=== PATIENT | female | born 1950 | race Caucasian/White ===

== ENCOUNTER 2017-04-10 10:49 | Emergency (ER) | payer MEDICARE, BC ==
[2017-04-10 11:29] VITALS: BP 119/62
--- NOTE | 2017-04-10 12:48 | EDM.PDOC ---
ED HPI GENERAL MEDICAL PROBLEM - General Chief Complaint: Genitourinary Problem Stated Complaint: POSSIBLE UTI Time Seen by Provider: 04/10/17 12:20 Source of Information: Reports: Patient, Family, Old Records History Limitations: Reports: No Limitations - History of Present Illness INITIAL COMMENTS - FREE TEXT/NARRATIVE: 66 yo female with MS is being tx'd with cefdinir for the past few days for a UTI. Was getting better in that her speech and arm strength were normalizing, but this morning seemed to be worse again so brought her in. Is actually quite a bit better now in the ER. Has several days of the cefdinir still left. Cx suggests efficacy. Onset: Today Onset Date: 04/10/17 Duration: Hour(s): Location: Reports: Upper Extremity, Left, Upper Extremity, Right Quality: Reports: Other (WEAKNESS) Severity: Mild Improves with: Reports: Other (? time) Worsens with: Reports: Other (infections) Context: Reports: Other (current UTI) Associated Symptoms: Reports: Weakness (arms bilat). Denies: Fever/Chills Treatments SUPERVISOR PLASMA: Reports: Other (see below) (cefdinir) Other Treatments SUPERVISOR PLASMA: Antibiotic for UTI - Related Data Allergies Allergy/AdvReac Type Severity Reaction Status Date / Time sulfamethoxazole Allergy Cannot Verified 04/10/17 12:26 [From Bactrim] Remember trimethoprim [From Bactrim] Allergy Cannot Verified 04/10/17 12:26 Remember Home Meds: Home Meds 0.9 % Sodium Chloride [Normal Saline Flush] 10 ml FLUSH DAILY 08/10/14 [History] Baclofen 10 - 20 mg PO TID 08/10/14 [History] Multivitamin [Daily Multiple Vitamin] 1 tab PO DAILY 08/10/14 [History] Cholecalciferol (Vitamin D3) [Vitamin D3] 2,500 units PO DAILY 01/03/15 [History ] Cefdinir [Cefdinir] 300 mg PO BID 04/10/17 [History] Past Medical History Genitourinary History: Reports: Other (See Below) Other Genitourinary History: has a catheter in place Has MS Other Musculoskeletal History: femur fracture in 2014 - Infectious Disease History Infectious Disease History: Reports: Chicken Pox Social & Family History - Tobacco Use Smoking Status *Q: Never Smoker Second Hand Smoke Exposure: No - Caffeine Use Caffeine Use: Reports: Coffee - Alcohol Use Days Per Week of Alcohol Use: 1 Number of Drinks Per Day: 1 Total Drinks Per Week: 1 - Recreational Drug Use Recreational Drug Use: No - Living Situation & Occupation Living situation: Reports: , with Spouse Occupation: Disabled ED ROS GENERAL - Review of Systems Review Of Systems: See Below Constitutional: Reports: Weakness (arms/some speech issues) HEENT: Reports: No Symptoms Respiratory: Reports: No Symptoms Cardiovascular: Reports: No Symptoms GI/Abdominal: Reports: No Symptoms : Reports: No Symptoms Musculoskeletal: Reports: No Symptoms Skin: Reports: No Symptoms Neurological: Reports: No Symptoms Psychiatric: Reports: No Symptoms ED EXAM, RENAL/ - Physical Exam Exam: See Below Exam Limited By: No Limitations General Appearance: Alert, WD/WN, No Apparent Distress, Obese Eye Exam: Bilateral Eye: EOMI, Normal Inspection, PERRL Ears: Normal External Exam, Normal Canal, Hearing Grossly Normal, Normal TMs Nose: Normal Inspection, Normal Mucosa, No Blood Throat/Mouth: Normal Inspection, Normal Lips, Normal Teeth, Normal Oropharynx, Normal Voice, No Airway Compromise Head: Atraumatic, Normocephalic Neck: Normal Inspection, Supple, Non-Tender Respiratory/Chest: No Respiratory Distress, Lungs Clear, Normal Breath Sounds, No Accessory Muscle Use Cardiovascular: Regular Rate, Rhythm, No Edema GI/Abdominal: Normal Bowel Sounds, Soft, Non-Tender Back Exam: Normal Inspection. No: CVA Tenderness (R), CVA Tenderness (L) Extremities: Normal Inspection, Normal Range of Motion, Non-Tender Neurological: Alert, Oriented, CN II-XII Intact, Normal Cognition, No Motor/ Sensory Deficits Psychiatric: Normal Affect, Normal Mood Skin Exam: Warm, Dry, Intact, Normal Color, No Rash Lymphatic: No Adenopathy Course - Vital Signs Last Recorded V/S: Last Vital Signs Temp 36.9 C 04/10/17 12:25 Pulse 68 04/10/17 12:25 Resp 18 04/10/17 12:25 BP 119/62 04/10/17 12:25 Pulse Ox 93 L 04/10/17 12:25 - Orders/Labs/Meds Orders: Active Orders 24 hr Category Date Time Status CULTURE URINE [RM] Stat Lab 04/10/17 12:34 Received Labs: Laboratory Tests 04/10/17 Range/Units 11:53 Urine Color Yellow Urine Appearance Cloudy Urine pH 7.0 (4.5-8.0) Ur Specific [place] 1.010 (1.008-1.030) Urine Protein Trace (NEGATIVE) mg/dL Urine Glucose (UA) Normal (NEGATIVE) mg/dL Urine Ketones 15 H (NEGATIVE) mg/dL Urine Occult Blood Large (NEGATIVE) Urine Nitrite Negative (NEGATIVE) Urine Bilirubin Negative (NEGATIVE) Urine Urobilinogen Normal (NORMAL) mg/dL Ur Leukocyte Esterase Large (NEGATIVE) Urine RBC 0-5 (0-5) Urine WBC 10-20 H (0-5) Ur Epithelial Cells Few Amorphous Sediment Few Urine Bacteria Few Urine Mucus Rare Departure - Departure Time of Disposition: 12:55 Disposition: Home, Self-Care 01 Condition: Good Clinical Impression: UTI, Urinary tract infectious disease - Discharge Information Referrals: Phu Marie NP [Primary Care Provider] - Forms: ED Department Discharge - My Orders Last 24 Hours: My Active Orders 04/10/17 12:34 CULTURE URINE [RM] Stat - Assessment/Plan Last 24 Hours: My Active Orders 04/10/17 12:34 CULTURE URINE [RM] Stat
== END 2017-04-10 13:05 | disposition home or self-care (01) ==
LOC: JP.ED 10:49
DX: N39.0 Urinary tract infection, site not specified (principal); Z79.899 Other long term (current) drug therapy; Z88.2 Allergy status to sulfonamides; Z88.1 Allergy status to other antibiotic agents
CPT/HCPCS: 81001; 87086; 87088; 87186; 99283; 99284

== ENCOUNTER 2017-10-16 20:13 | Emergency (ER) | payer MEDICARE, BC ==
[2017-10-16] MEDS ORDERED: cefTRIAXone 1 GM, Lidocaine 1% 2.1 ML IM ONE ×2 (21:53)
--- NOTE | 2017-10-16 22:02 | EDM.PDOC ---
ED HPI GENERAL MEDICAL PROBLEM - General Chief Complaint: Genitourinary Problem Stated Complaint: UTI? Time Seen by Provider: 10/16/17 21:00 Source of Information: Reports: Patient, Family History Limitations: Reports: No Limitations - History of Present Illness INITIAL COMMENTS - FREE TEXT/NARRATIVE: Nancy presents today with complaints of bilateral flank pain, intermittent fever and chills, weakness, cloud and dark urine for 2 days. 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 Pain Score (Numeric/FACES): 4 - Related Data Allergies Allergy/AdvReac Type Severity Reaction Status Date / Time sulfamethoxazole Allergy Cannot Verified 04/10/17 12:26 [From Bactrim] Remember trimethoprim [From Bactrim] Allergy Cannot Verified 04/10/17 12:26 Remember Home Meds: Home Meds RX: 0.9 % Sodium Chloride [Normal Saline Flush] 10 ml FLUSH DAILY 08/10/14 [ History] RX: Baclofen 10 - 20 mg PO TID 08/10/14 [History] RX: Multivitamin [Daily Multiple Vitamin] 1 tab PO DAILY 08/10/14 [History] RX: Cholecalciferol (Vitamin D3) [Vitamin D3] 2,500 units PO DAILY 01/03/15 [ History] Cefdinir 300 mg PO BID 04/10/17 [History] Past Medical History Genitourinary History: Reports: UTI, Recurrent, Other (See Below) Other Genitourinary History: has a catheter in place 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 tibia and fibula fracture Neurological History: Reports: Other (See Below) Other Neuro History: MS Endocrine/Metabolic History: Reports: Obesity/BMI 30+ Oncologic (Cancer) History: Reports: Other (See Below) Other Oncologic History: Schwanoma tumors - Infectious Disease History Infectious Disease History: Reports: Chicken Pox - Past Surgical History GI Surgical History: Reports: Colonoscopy Neurological Surgical History: Reports: Thoracic Spine Musculoskeletal Surgical History: Reports: Other (See Below) Other Musculoskeletal Surgeries/Procedures:: Left femur surgically repaired, lino placed Social & Family History - Tobacco Use Smoking Status *Q: Never Smoker - Caffeine Use Caffeine Use: Reports: Coffee - Recreational Drug Use Recreational Drug Use: No - Living Situation & Occupation Living situation: Reports: , with Spouse Occupation: Disabled ED ROS GENERAL - Review of Systems Review Of Systems: See Below Constitutional: Reports: Fever, Chills, Weakness. Denies: Malaise, Fatigue, Night Sweats, Diaphoresis, Decreased Appetite HEENT: Reports: No Symptoms Respiratory: Denies: Shortness of Breath, Wheezing, Cough, Sputum Cardiovascular: Denies: Chest Pain, Dyspnea on Exertion, Edema, Lightheadedness , Palpitations, Syncope Endocrine: Reports: No Symptoms GI/Abdominal: Denies: Abdominal Pain, Bloody Stool, Constipation, Diarrhea, Decreased Appetite, Hematochezia, Nausea, Vomiting : Reports: Flank Pain, Other (cloudy urine, patient has indwelling catheter due to significant MS. ). Denies: Dysuria Musculoskeletal: Reports: No Symptoms Skin: Denies: Cyanosis, Pallor, Diaphoresis, Bruising, Pruritis, Rash, Erythema Neurological: Reports: Weakness. Denies: Confusion, Dizziness, Headache, Numbness, Tingling Psychiatric: Reports: No Symptoms Hematologic/Lymphatic: Reports: No Symptoms Immunologic: Reports: No Symptoms ED EXAM, GI/ABD - Physical Exam Exam: See Below Text/Narrative:: Nancy is an alert and oriented 67 year old female with complaints of bilateral flank pain, intermittent fever, chills for two days. She has a history of MS and is wheelchair bound. General Appearance: Alert, WD/WN, No Apparent Distress Eyes: Bilateral: Normal Appearance, EOMI Ears: Normal External Exam, Normal Canal, Hearing Grossly Normal, Normal TMs Nose: Normal Inspection, Normal Mucosa, No Blood Throat/Mouth: Normal Inspection, Normal Lips, Normal Gums, Normal Oropharynx, Normal Voice, No Airway Compromise Head: Atraumatic, Normocephalic Neck: Normal Inspection, Supple, Non-Tender, Full Range of Motion Respiratory/Chest: No Respiratory Distress, Lungs Clear, Normal Breath Sounds, No Accessory Muscle Use, Chest Non-Tender Cardiovascular: Normal Peripheral Pulses, Regular Rate, Rhythm, No Edema, No Murmur, No Rub GI/Abdominal Exam: Normal Bowel Sounds, Soft, Non-Tender, No Organomegaly, No Distention, No Mass Back Exam: Normal Inspection, Full Range of Motion. No: CVA Tenderness (R), CVA Tenderness (L) Extremities: Normal Inspection, Normal Range of Motion, Non-Tender, No Pedal Edema, Normal Capillary Refill Neurological: Alert, Oriented, Normal Cognition, Other (Wheelchair bound, decreased reflexes due to MS.) Psychiatric: Normal Affect, Normal Mood Skin Exam: Warm, Dry, Intact, Normal Color, No Rash Lymphatic: No Adenopathy Course - Vital Signs Last Recorded V/S: Last Vital Signs Temp 38.4 C H 10/16/17 23:01 Pulse 96 10/16/17 23:01 Resp 21 H 10/16/17 23:01 BP 110/44 L 10/16/17 23:01 Pulse Ox 94 L 10/16/17 23:01 - Orders/Labs/Meds Orders: Active Orders 24 hr Category Date Time Status Barboza Catheter Insertion [Insert Urinary Catheter] [OM. Care 10/16/17 23:45 Ordered PC] Q24H Urinary Catheter Assessment [RC] ASDIRECTED Care 10/16/17 23:38 Active Chest 1V Frontal [CR] Stat Exams 10/16/17 23:28 Ordered CULTURE BLOOD [BC] Stat Lab 10/16/17 22:10 Received CULTURE URINE [RM] Stat Lab 10/16/17 21:45 Received UA W/MICROSCOPIC [URIN] Stat Lab 10/16/17 21:24 Ordered Sodium Chloride 0.9% [Normal Saline] 1,000 ml Med 10/16/17 22:30 Active IV ASDIRECTED Medication Orders Sodium Chloride (Normal Saline) 1,000 mls @ 500 mls/hr IV ASDIRECTED LAZARO Last Admin: 10/16/17 22:44 Dose: 500 mls/hr Labs: Laboratory Tests 10/16/17 10/16/17 10/16/17 Range/Units 21:24 22:09 22:10 WBC 14.3 H (4.5-11.0) K/uL RBC 5.13 (3.30-5.50) M/uL Hgb 15.5 H D (12.0-15.0) g/dL Hct 46.3 (36.0-48.0) % MCV 90 (80-98) fL MCH 30 (27-31) pg MCHC 34 (32-36) % Plt Count 352 (150-400) K/uL Neut % (Auto) 82 H (36-66) % Lymph % (Auto) 11 L (24-44) % Hind[place] % (Auto) 7 H (2-6) % Eos % (Auto) 0 L (2-4) % Baso % (Auto) 0 (0-1) % Sodium 135 L (140-148) mmol/L Potassium 3.7 (3.6-5.2) mmol/L Chloride 100 (100-108) mmol/L Carbon Dioxide 24 (21-32) mmol/L Anion Gap 14.7 H (5.0-14.0) mmol/L BUN 13 (7-18) mg/dL Creatinine 0.6 (0.6-1.0) mg/dL Est Cr Clr Drug Dosing 86.34 mL/min Estimated GFR (MDRD) > 60 (>60) Glucose 118 H (74-106) mg/dL Lactic Acid (0.4-2.0) mmol/L Calcium 8.8 (8.5-10.1) mg/dL Total Bilirubin 0.8 (0.2-1.0) mg/dL AST 63 H (15-37) U/L ALT 104 H (12-78) U/L Alkaline Phosphatase 94 (46-116) U/L C-Reactive Protein 10.47 H (0.0-0.3) mg/dL Total Protein 7.7 (6.4-8.2) g/dL Albumin 3.5 (3.4-5.0) g/dL Globulin 4.2 H (2.3-3.5) g/dL Albumin/Globulin Ratio 0.8 L (1.2-2.2) Urine Color Yellow Urine Appearance Cloudy Urine pH 6.0 (4.5-8.0) Ur Specific [place] 1.015 (1.008-1.030) Urine Protein 30 H (NEGATIVE) mg/dL Urine Glucose (UA) Normal (NEGATIVE) mg/dL Urine Ketones 15 H (NEGATIVE) mg/dL Urine Occult Blood Large (NEGATIVE) Urine Nitrite Positive H (NEGATIVE) Urine Bilirubin Small (NEGATIVE) Urine Urobilinogen 4 (NORMAL) mg/dL Ur Leukocyte Esterase Large (NEGATIVE) Urine RBC Packed H (0-5) Urine WBC Packed H (0-5) Ur Epithelial Cells Few Amorphous Sediment Not seen Urine Bacteria Many Urine Mucus Not seen 10/16/17 Range/Units 22:10 WBC (4.5-11.0) K/uL RBC (3.30-5.50) M/uL Hgb (12.0-15.0) g/dL Hct (36.0-48.0) % MCV (80-98) fL MCH (27-31) pg MCHC (32-36) % Plt Count (150-400) K/uL Neut % (Auto) (36-66) % Lymph % (Auto) (24-44) % [place] % (Auto) (2-6) % Eos % (Auto) (2-4) % Baso % (Auto) (0-1) % Sodium (140-148) mmol/L Potassium (3.6-5.2) mmol/L Chloride (100-108) mmol/L Carbon Dioxide (21-32) mmol/L Anion Gap (5.0-14.0) mmol/L BUN (7-18) mg/dL Creatinine (0.6-1.0) mg/dL Est Cr Clr Drug Dosing mL/min Estimated GFR (MDRD) (>60) Glucose (74-106) mg/dL Lactic Acid 1.6 (0.4-2.0) mmol/L Calcium (8.5-10.1) mg/dL Total Bilirubin (0.2-1.0) mg/dL AST (15-37) U/L ALT (12-78) U/L Alkaline Phosphatase (46-116) U/L C-Reactive Protein (0.0-0.3) mg/dL Total Protein (6.4-8.2) g/dL Albumin (3.4-5.0) g/dL Globulin (2.3-3.5) g/dL Albumin/Globulin Ratio (1.2-2.2) Urine Color Urine Appearance Urine pH (4.5-8.0) Ur Specific [place] (1.008-1.030) Urine Protein (NEGATIVE) mg/dL Urine Glucose (UA) (NEGATIVE) mg/dL Urine Ketones (NEGATIVE) mg/dL Urine Occult Blood (NEGATIVE) Urine Nitrite (NEGATIVE) Urine Bilirubin (NEGATIVE) Urine Urobilinogen (NORMAL) mg/dL Ur Leukocyte Esterase (NEGATIVE) Urine RBC (0-5) Urine WBC (0-5) Ur Epithelial Cells Amorphous Sediment Urine Bacteria Urine Mucus Patient lab work reviewed, noted WBC 14.3, Neut 82, Na 135, Lactic acid 1.6, CRP 10.46. Lab work reviewed with Dr. Cali, patient and her . they are in agreement with plan. We will provide IV fluid hydration, ceftriaxone 1 gram IV and ciprofloxacin 400mg IV, change indwelling barboza catheter and transfer to another facility due to no bed availability. Meds: Medications Generic Name Dose Route Start Last Admin Trade Name Freq PRN Reason Stop Dose Admin Sodium Chloride 1,000 mls @ 500 mls/hr 10/16/17 22:30 10/16/17 22:44 Normal Saline IV 500 mls/hr ASDIRECTED LAZARO Administration Discontinued Medications Generic Name Dose Route Start Last Admin Trade Name Freq PRN Reason Stop Dose Admin Acetaminophen 1,000 mg 10/16/17 22:10 10/16/17 22:43 Tylenol Extra Strength PO 10/16/17 22:11 1,000 mg ONETIME ONE Administration Ceftriaxone Sodium 1 gm/ 0 gm 10/16/17 21:53 10/16/17 22:56 Lidocaine HCl 2.1 ml IM 10/16/17 21:54 Not Given ONETIME ONE Ciprofloxacin/Dextrose 400 mg/ 200 mls @ 200 mls/hr 10/16/17 22:11 10/16/17 22:46 Premix IV 10/16/17 23:10 200 mls/hr ONETIME ONE Administration Ceftriaxone Sodium 1 gm/ 50 mls @ 100 mls/hr 10/16/17 22:13 10/16/17 22:55 Sodium Chloride IV 10/16/17 22:42 100 mls/hr ONETIME ONE Administration Ondansetron HCl 4 mg 10/16/17 22:09 10/16/17 22:43 Zofran Odt PO 10/16/17 22:10 4 mg ONETIME ONE Administration - Radiology Interpretation Free Text/Narrative:: Portable chest x-ray completed, wet read, no acute findings. Radiologist read pending. - Re-Assessments/Exams Free Text/Narrative Re-Assessment/Exam: 10/16/17 22:30 Upon discharge, patient became nauseated, diaphoretic with increase of fever to 102F. Additional lab work, IV fluids initiated. No hospital beds available here at [facility]. 10/16/17 23:11 Dr. Floyd contacted [facility] for concerns of acute UTI, Acute pyelonephritis, comorbidities. He agrees to accept patient. Patient will be transferred via EMS. Patient and her in agreement with plan. Departure - Departure Time of Disposition: 23:19 Disposition: DC/Tfer to [facility] Condition: Fair Clinical Impression: Acute lower urinary tract infection, Acute pyelonephritis - Discharge Information Referrals: Phu Marie, FORM CARPENTER [Primary Care Provider] - Forms: ED Department Discharge Additional Instructions: Patient evaluated, will be transferred to [facility] for acute urinary tract infection and acute pyelonephritis - My Orders Last 24 Hours: My Active Orders 10/16/17 21:24 UA W/MICROSCOPIC [URIN] Stat 10/16/17 21:45 CULTURE URINE [RM] Stat 10/16/17 22:10 CULTURE BLOOD [BC] Stat 10/16/17 22:30 Sodium Chloride 0.9% [Normal Saline] 1,000 ml IV ASDIRECTED 10/16/17 23:28 Chest 1V Frontal [CR] Stat 10/16/17 23:38 Urinary Catheter Assessment [RC] ASDIRECTED 10/16/17 23:45 Barboza Catheter Insertion [Insert Urinary Catheter] [OM.PC] Q24H - Assessment/Plan Last 24 Hours: My Active Orders 10/16/17 21:24 UA W/MICROSCOPIC [URIN] Stat 10/16/17 21:45 CULTURE URINE [RM] Stat 10/16/17 22:10 CULTURE BLOOD [BC] Stat 10/16/17 22:30 Sodium Chloride 0.9% [Normal Saline] 1,000 ml IV ASDIRECTED 10/16/17 23:28 Chest 1V Frontal [CR] Stat 10/16/17 23:38 Urinary Catheter Assessment [RC] ASDIRECTED 10/16/17 23:45 Barboza Catheter Insertion [Insert Urinary Catheter] [OM.PC] Q24H Assessment:: Acute urinary tract infection Acute pyelonephritis Plan: Patient evaluated and will be transferred to [facility].
[2017-10-16] MEDS ORDERED: Ondansetron 4 MG Tab.DIS PO ONE (22:09)
[2017-10-16] MEDS ORDERED: Acetaminophen 500 MG Tab PO ONE (22:10)
[2017-10-16] MEDS ORDERED: Ciprofloxacin in D5W 400 MG in Premix Bag 1 BAG IV ONE ×2 (22:11)
[2017-10-16] MEDS ORDERED: cefTRIAXone 1 GM in Sodium Chloride 0.9% 50 ML IV ONE (22:13)
[2017-10-16] MEDS ORDERED: Sodium Chloride 0.9% 1,000 ML IV SCH (22:30)
[2017-10-16 23:01] VITALS: BP 110/44
--- NOTE | 2017-10-19 09:05 | CR ---
Chest 1V Frontal FINDINGS: The heart and vascular structures are normal in appearance. No infiltrates or effusions are demonstrated. The skeletal structures are unremarkable. IMPRESSION: Negative exam.
== END 2017-10-17 00:25 | disposition critical access hospital (66) ==
LOC: JP.ED 20:13
DX: N39.0 Urinary tract infection, site not specified (principal); N10 Acute pyelonephritis; Z88.2 Allergy status to sulfonamides; Z88.1 Allergy status to other antibiotic agents; Z79.899 Other long term (current) drug therapy
CPT/HCPCS: 36415; 71045; 80053; 81001; 83605; 85025; 86140; 87040; 87086; 87088; 87186; 96361; 96365; 96375; 99285; A9270; J0696; J0744; J7040; J7050

== ENCOUNTER 2018-07-02 16:23 | Emergency (ER) | payer MEDICARE, BC ==
[2018-07-02 16:43] VITALS: BP 146/70
--- NOTE | 2018-07-02 17:51 | EDM.PDOC ---
ED HPI GENERAL MEDICAL PROBLEM - General Chief Complaint: Genitourinary Problem Stated Complaint: UTI Time Seen by Provider: 07/02/18 17:27 Source of Information: Reports: Patient (In this lady with the MS is some family member) History Limitations: Reports: No Limitations - History of Present Illness INITIAL COMMENTS - FREE TEXT/NARRATIVE: This lady has MS and an indwelling Phelps catheter. She has a history of recurrent bladder infections. Her Phelps catheter was changed approximately 8 days ago. Last night she thinks she had just a little bit of fever. There's been no vomiting. She does say she kind of has blocked body aches and minor back pain. She thinks she has a urinary tract infection as this is similar to her past presentations with UTIs. Generalized Pain Score (Numeric/FACES): 8 - Related Data Allergies Allergy/AdvReac Type Severity Reaction Status Date / Time sulfamethoxazole Allergy Cannot Verified 07/02/18 16:43 [From Bactrim] Remember trimethoprim [From Bactrim] Allergy Cannot Verified 07/02/18 16:43 Remember Home Meds: Home Meds Baclofen 10 mg PO BID 08/10/14 [History] Multivitamin [Daily Multiple Vitamin] 1 tab PO DAILY 08/10/14 [History] Cholecalciferol (Vitamin D3) [Vitamin D3] 2,500 units PO DAILY 01/03/15 [History ] Citric AC/Gluconolact/Mag Carb [Renacidin Irrigation Solution] 50 ml FLUSH ASDIRECTED 05/12/18 [History] Past Medical History Gastrointestinal History: Reports: Fecal Incontinence, Other (See Below) Genitourinary History: Reports: UTI, Recurrent, Other (See Below) Other Genitourinary History: has a catheter in place 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 tibia and fibula fracture Neurological History: Reports: Other (See Below) Other Neuro History: MS Endocrine/Metabolic History: Reports: Obesity/BMI 30+ Oncologic (Cancer) History: Reports: Other (See Below) Other Oncologic History: Schwanoma tumors - Infectious Disease History Infectious Disease History: Reports: Chicken Pox, Measles, Mumps - Past Surgical History Head Surgeries/Procedures: Reports: None GI Surgical History: Reports: Colonoscopy Female Surgical History: Reports: None Endocrine Surgical History: Reports: None Neurological Surgical History: Reports: Thoracic Spine Musculoskeletal Surgical History: Reports: Other (See Below) Other Musculoskeletal Surgeries/Procedures:: Left femur surgically repaired, lino placed Oncologic Surgical History: Reports: None Dermatological Surgical History: Reports: None Social & Family History - Tobacco Use Smoking Status *Q: Never Smoker Second Hand Smoke Exposure: No - Caffeine Use Caffeine Use: Reports: Coffee - Recreational Drug Use Recreational Drug Use: No - Living Situation & Occupation Living situation: Reports: , with Spouse Occupation: Disabled ED ROS GENERAL - Review of Systems Review Of Systems: ROS reveals no pertinent complaints other than HPI. ED EXAM, RENAL/ - Physical Exam Exam: See Below Exam Limited By: No Limitations General Appearance: Alert, No Apparent Distress, Obese, Other (This lady is wheelchair bound she is alert happy smiling doesn't appear in assisted any distress) Eye Exam: Bilateral Eye: Normal Inspection Throat/Mouth: Normal Inspection Head: Atraumatic Neck: Normal Inspection Respiratory/Chest: Lungs Clear Cardiovascular: Regular Rate, Rhythm Back Exam: Other (Unable to do a back exam on this lady) Neurological: Alert, Oriented Psychiatric: Normal Affect, Normal Mood Course - Vital Signs Last Recorded V/S: Last Vital Signs Temp 37.4 C 07/02/18 16:43 Pulse 103 H 07/02/18 16:43 Resp 16 07/02/18 16:43 BP 146/70 H 07/02/18 16:43 Pulse Ox 99 07/02/18 16:43 - Orders/Labs/Meds Orders: Active Orders 24 hr Category Date Time Status CULTURE URINE [RM] Stat Lab 07/02/18 18:21 Ordered Labs: Laboratory Tests 07/02/18 Range/Units 17:31 Urine Color [place] Urine Appearance Cloudy Urine pH 7.0 (4.5-8.0) Ur Specific [place] 1.015 (1.008-1.030) Urine Protein Trace (NEGATIVE) mg/dL Urine Glucose (UA) Normal (NEGATIVE) mg/dL Urine Ketones 15 H (NEGATIVE) mg/dL Urine Occult Blood Large (NEGATIVE) Urine Nitrite Positive H (NEGATIVE) Urine Bilirubin Small (NEGATIVE) Urine Urobilinogen Normal (NORMAL) mg/dL Ur Leukocyte Esterase Moderate (NEGATIVE) Urine RBC 10-20 H (0-5) Urine WBC Packed H (0-5) Ur Epithelial Cells Few Amorphous Sediment Numerous Urine Bacteria Moderate Urine Mucus Few - Re-Assessments/Exams Free Text/Narrative Re-Assessment/Exam: 07/02/18 18:24 Urinalysis consistent with urinary tract infection. Urine sent for culture. Will treat with Cipro which she has taken successfully before. Departure - Departure Time of Disposition: 18:25 Disposition: Home, Self-Care 01 Condition: Fair Clinical Impression: Acute cystitis - Discharge Information Referrals: Phu Marie POOL ATTENDANT [Primary Care Provider] - Forms: ED Department Discharge Additional Instructions: Take Cipro 500 mg twice daily for one week. Be sure to drink plenty of water. If there is another infection soon then consider changing the catheter early. - My Orders Last 24 Hours: My Active Orders 07/02/18 18:21 CULTURE URINE [RM] Stat - Assessment/Plan Last 24 Hours: My Active Orders 07/02/18 18:21 CULTURE URINE [RM] Stat
== END 2018-07-02 18:34 | disposition home or self-care (01) ==
LOC: JP.ED 16:23
DX: N30.00 Acute cystitis without hematuria (principal)
CPT/HCPCS: 81001; 87086; 99284

== ENCOUNTER 2018-09-04 15:38 | Emergency (ER) | payer MEDICARE, BC ==
[2018-09-04] MEDS ORDERED: HYDROmorphone 1 MG/ML Syringe IVPUSH ONE (15:59)
[2018-09-04] MEDS ORDERED: Ondansetron 4 MG Tab.DIS PO ONE ×2 (16:00→16:33)
[2018-09-04] MEDS ORDERED: Acetaminophen 500 MG Tab PO ONE (16:32)
--- NOTE | 2018-09-04 16:47 | EDM.PDOC ---
<Pravin Cali G - Last Filed: 09/04/18 16:42> ED HPI GENERAL MEDICAL PROBLEM - General Chief Complaint: Genitourinary Problem Stated Complaint: SURGERY COMPLICATIONS Time Seen by Provider: 09/04/18 16:35 Source of Information: Reports: Patient, Family, Old Records, RN History Limitations: Reports: No Limitations - History of Present Illness INITIAL COMMENTS - FREE TEXT/NARRATIVE: 67 yo female with lengthy hx of MS had a stent placed in [place] yesterday for a kidney stone. Post-op she was given an Rx for Levaquin which she took for the first time today. Has abrupt onset today of fever, chills, and weakness. says she came down with a cold recently. Is not able to cough due to her MS. Has an indwelling barboza catheter. Onset: Today Onset Date: 09/04/18 Onset Time: 15:00 Duration: Minutes:, Constant Location: Reports: Generalized Quality: Reports: Other (no focal pain that is new) Severity: Moderate Improves with: Reports: None Worsens with: Reports: Other (time) Context: Reports: Other (see HPI) Associated Symptoms: Reports: Fever/Chills, Weakness. Denies: Chest Pain, Cough , Nausea/Vomiting, Rash, Shortness of Breath Treatments FISHER EEL SPEAR: Reports: Other (see below) (Levaquin one dose shortly before arrival. ) Back Pain Score (Numeric/FACES): 9 - Related Data Allergies Allergy/AdvReac Type Severity Reaction Status Date / Time sulfamethoxazole Allergy Cannot Verified 09/04/18 16:02 [From Bactrim] Remember trimethoprim [From Bactrim] Allergy Cannot Verified 09/04/18 16:02 Remember Home Meds: Home Meds Baclofen 20 mg PO TID 08/10/14 [History] Multivitamin [Daily Multiple Vitamin] 1 tab PO DAILY 08/10/14 [History] *Gluconic Acid-Citric Acid 1 dose TOP DAILY 09/04/18 [History] Biotin 5 mg PO DAILY 09/04/18 [History] Levofloxacin 500 mg PO DAILY 09/04/18 [History] Na Phos,M-B/Na Phos,Di-Ba [Fleet Enema] 133 ml RC 09/04/18 [History] Past Medical History HEENT History: Reports: Impaired Vision Gastrointestinal History: Reports: Fecal Incontinence Genitourinary History: Reports: UTI, Recurrent, Other (See Below) Other Genitourinary History: has a catheter in place Has MS INTENSIVE CARE NURSE History: Reports: , Spontaneous Musculoskeletal History: Reports: Fracture, Other (See Below) Other Musculoskeletal History: femur fracture in 2014. tibia and fibula fracture Neurological History: Reports: Other (See Below) Other Neuro History: MS Endocrine/Metabolic History: Reports: Obesity/BMI 30+ Oncologic (Cancer) History: Reports: Other (See Below) Other Oncologic History: Schwanoma tumors - Infectious Disease History Infectious Disease History: Reports: Chicken Pox, Measles, Mumps - Past Surgical History GI Surgical History: Reports: Colonoscopy Neurological Surgical History: Reports: Thoracic Spine Musculoskeletal Surgical History: Reports: Other (See Below) Other Musculoskeletal Surgeries/Procedures:: Left femur surgically repaired, lino placed Social & Family History - Tobacco Use Smoking Status *Q: Never Smoker Second Hand Smoke Exposure: No - Caffeine Use Caffeine Use: Reports: Coffee, Tea - Recreational Drug Use Recreational Drug Use: No - Living Situation & Occupation Living situation: Reports: , with Spouse Occupation: Disabled Course - Vital Signs Last Recorded V/S: Last Vital Signs Temp 97.9 F 09/04/18 19:31 Pulse 89 09/04/18 19:34 Resp 16 09/04/18 19:34 BP 92/43 L 09/04/18 19:34 Pulse Ox 93 L 09/04/18 19:34 - Orders/Labs/Meds Orders: Active Orders 24 hr Category Date Time Status CULTURE BLOOD [BC] Stat Lab 09/04/18 17:30 Received CULTURE BLOOD [BC] Stat Lab 09/04/18 17:40 Received CULTURE URINE [RM] Stat Lab 09/04/18 17:22 Received Sodium Chloride 0.9% [Normal Saline] 1,000 ml Med 09/04/18 18:00 Active IV ASDIRECTED Sodium Chloride 0.9% [Saline Flush] Med 09/04/18 17:10 Active 10 ml FLUSH ASDIRECTED PRN Saline Lock Insert [OM.PC] Routine Oth 09/04/18 17:10 Ordered Medication Orders Sodium Chloride (Normal Saline) 1,000 mls @ 500 mls/hr IV ASDIRECTED LAZARO Last Admin: 09/04/18 18:21 Dose: 500 mls/hr Sodium Chloride (Saline Flush) 10 ml FLUSH ASDIRECTED PRN PRN Reason: Keep Vein Open Last Admin: 09/04/18 17:25 Dose: 10 ml Labs: Laboratory Tests 09/04/18 09/04/18 09/04/18 Range/Units 16:38 16:38 16:38 WBC 9.0 (4.5-11.0) K/uL RBC 5.19 (3.30-5.50) M/uL Hgb 15.8 H (12.0-15.0) g/dL Hct 46.7 (36.0-48.0) % MCV 90 (80-98) fL MCH 30 (27-31) pg MCHC 34 (32-36) % Plt Count 156 (150-400) K/uL Sodium 136 L (140-148) mmol/L Potassium 4.0 (3.6-5.2) mmol/L Chloride 101 (100-108) mmol/L Carbon Dioxide 27 (21-32) mmol/L Anion Gap 12.0 (5.0-14.0) mmol/L BUN 11 (7-18) mg/dL Creatinine 0.6 (0.6-1.0) mg/dL Est Cr Clr Drug Dosing 86.34 mL/min Estimated GFR (MDRD) > 60 (>60) Glucose 117 H (74-106) mg/dL Lactic Acid 1.7 (0.4-2.0) mmol/L Calcium 9.0 (8.5-10.1) mg/dL Urine Color Urine Appearance Urine pH (4.5-8.0) Ur Specific [place] (1.008-1.030) Urine Protein (NEGATIVE) mg/dL Urine Glucose (UA) (NEGATIVE) mg/dL Urine Ketones (NEGATIVE) mg/dL Urine Occult Blood (NEGATIVE) Urine Nitrite (NEGATIVE) Urine Bilirubin (NEGATIVE) Urine Urobilinogen (NORMAL) mg/dL Ur Leukocyte Esterase (NEGATIVE) Urine RBC (0-5) Urine WBC (0-5) Ur Epithelial Cells Amorphous Sediment Urine Bacteria Urine Mucus 09/04/18 Range/Units 16:50 WBC (4.5-11.0) K/uL RBC (3.30-5.50) M/uL Hgb (12.0-15.0) g/dL Hct (36.0-48.0) % MCV (80-98) fL MCH (27-31) pg MCHC (32-36) % Plt Count (150-400) K/uL Sodium (140-148) mmol/L Potassium (3.6-5.2) mmol/L Chloride (100-108) mmol/L Carbon Dioxide (21-32) mmol/L Anion Gap (5.0-14.0) mmol/L BUN (7-18) mg/dL Creatinine (0.6-1.0) mg/dL Est Cr Clr Drug Dosing mL/min Estimated GFR (MDRD) (>60) Glucose (74-106) mg/dL Lactic Acid (0.4-2.0) mmol/L Calcium (8.5-10.1) mg/dL Urine Color Yellow Urine Appearance Cloudy Urine pH 6.0 (4.5-8.0) Ur Specific [place] 1.015 (1.008-1.030) Urine Protein 30 H (NEGATIVE) mg/dL Urine Glucose (UA) Normal (NEGATIVE) mg/dL Urine Ketones 50 H (NEGATIVE) mg/dL Urine Occult Blood Large (NEGATIVE) Urine Nitrite Negative (NEGATIVE) Urine Bilirubin Negative (NEGATIVE) Urine Urobilinogen Normal (NORMAL) mg/dL Ur Leukocyte Esterase Large (NEGATIVE) Urine RBC Packed H (0-5) Urine WBC Packed H (0-5) Ur Epithelial Cells Few Amorphous Sediment Not seen Urine Bacteria Many Urine Mucus Not seen Meds: Medications Generic Name Dose Route Start Last Admin Trade Name Freq PRN Reason Stop Dose Admin Sodium Chloride 1,000 mls @ 500 mls/hr 09/04/18 18:00 09/04/18 18:21 Normal Saline IV 500 mls/hr ASDIRECTED LAZARO Administration Sodium Chloride 10 ml 09/04/18 17:10 09/04/18 17:25 Saline Flush FLUSH 10 ml ASDIRECTED PRN Administration Keep Vein Open Discontinued Medications Generic Name Dose Route Start Last Admin Trade Name Freq PRN Reason Stop Dose Admin Acetaminophen 1,000 mg 09/04/18 16:32 09/04/18 16:38 Tylenol Extra Strength PO 09/04/18 16:33 1,000 mg ONETIME ONE Administration Hydromorphone HCl 1 mg 09/04/18 15:59 09/04/18 19:17 Dilaudid IVPUSH 09/04/18 16:00 Not Given ONETIME ONE Ceftriaxone Sodium 1 gm/ 50 mls @ 100 mls/hr 09/04/18 17:58 09/04/18 18:22 Sodium Chloride IV 09/04/18 18:27 100 mls/hr ONETIME ONE Administration Ondansetron HCl 4 mg 09/04/18 16:00 Zofran Odt PO 09/04/18 16:01 ONETIME ONE Ondansetron HCl 4 mg 09/04/18 16:33 09/04/18 16:38 Zofran Odt PO 09/04/18 16:34 4 mg ONETIME ONE Administration Departure - Departure Disposition: Home, Self-Care 01 Clinical Impression: UTI (urinary tract infection) Qualifiers: Urinary tract infection type: site unspecified Hematuria presence: without hematuria Qualified Code(s): N39.0 - Urinary tract infection, site not specified - Discharge Information Referrals: Phu Marie RN LACTATION [Primary Care Provider] - Forms: ED Department Discharge Additional Instructions: Complete the course of Levaquin antibiotics, keep your follow-up appointment with urology, call return to the emergency department with worsening of symptoms <Jose RafaelrGonzalez - Last Filed: 09/04/18 19:41> ED ROS GENERAL - Review of Systems Review Of Systems: See Below Constitutional: Reports: Fever, Weakness Respiratory: Reports: No Symptoms Cardiovascular: Reports: No Symptoms GI/Abdominal: Reports: No Symptoms : Reports: Dysuria ED EXAM, SEPSIS - Physical Exam Exam: See Below Exam Limited By: No Limitations General Appearance: Alert, WD/WN, No Apparent Distress Respiratory/Chest: No Respiratory Distress GI/Abdominal Exam: Soft, Non-Tender Departure - Departure Time of Disposition: 19:39 - Assessment/Plan Plan: Assessment Acuity = acute Site and laterality = urinary tract infection,. The patient with known history of multiple sclerosis and recent kidney surgery Etiology = probably related to recent surgery Manifestations = none Location of injury = Home Lab values = CBC, CMP unremarkable urinalysis does have packed rbc's and packed WBCs consistent with hematuria and pyuria respectively blood culture and urine culture are pending Plan Good response to Rocephin provided in the emergency department she does have Levaquin at home is 7 day course which she will start tomorrow she also has a follow-up with urology in [place] This note was dictated using [employer] voice recognition software please call with any questions on syntax or grammar.
[2018-09-04] MEDS ORDERED: Sodium Chloride 0.9% 10 ML Syringe FLUSH PRN (17:10)
[2018-09-04] MEDS ORDERED: cefTRIAXone 1 GM in Sodium Chloride 0.9% 50 ML IV ONE (17:58)
[2018-09-04] MEDS ORDERED: Sodium Chloride 0.9% 1,000 ML IV SCH (18:00)
[2018-09-04 19:34] VITALS: BP 92/43
== END 2018-09-04 20:39 | disposition home or self-care (01) ==
LOC: JP.ED 15:38
DX: N39.0 Urinary tract infection, site not specified (principal); E66.9 Obesity, unspecified; Z88.2 Allergy status to sulfonamides; Z88.8 Allergy status to other drugs, medicaments and biological substances; Z79.899 Other long term (current) drug therapy
CPT/HCPCS: 36415; 80048; 81001; 83605; 85027; 87040; 87086; 96361; 96365; 99283; A9270; J0696; J7030; J7050; 87088

== ENCOUNTER 2022-05-21 17:55 | Emergency (ER) | payer MEDICARE, OTHER ==
[2022-05-21] MEDS ORDERED: Sodium Chloride 0.9% 500 ML IV ONE (18:06)
[2022-05-21] MEDS ORDERED: Sodium Chloride 0.9% 10 ML Syringe FLUSH PRN (18:06)
[2022-05-21 19:03] LABS: ESTIMATED GFR 79 mL/min (>60)
[2022-05-21 19:05] LABS: TROPONIN I HIGH SENSITIVITY 268.8 pg/mL (<=60.3)
[2022-05-21] MEDS ORDERED: Sodium Chloride 0.9% 75 ML IV SCH (19:30)
[2022-05-21] MEDS ORDERED: Iopamidol 755 Mg/ML 100 ML Bottle IV SCH (19:30)
[2022-05-21] MEDS ORDERED: cefTRIAXone 2 GM in Sodium Chloride 0.9% 50 ML IV SCH (21:00)
[2022-05-21] MEDS ORDERED: Heparin Sodium 5,000 Units/ML Vial IVPUSH ONE (21:38)
[2022-05-21] MEDS ORDERED: Heparin Sodium/D5W 25,000 UNITS/500 ML BAG IV SCH (21:45)
[2022-05-21] MEDS ORDERED: Acetaminophen 325 MG Tab PO PRN (21:54)
[2022-05-21] MEDS ORDERED: Sodium Chloride 0.9% 1,000 ML IV SCH (22:00)
[2022-05-21] MEDS ORDERED: Acetaminophen 650 MG in Premix Bag 1 BAG IV PRN (22:17)
[2022-05-22] MEDS ORDERED: Sodium Chloride 0.9% 1,000 ML IV SCH ×3 (00:15→09:15)
[2022-05-22] MEDS: Norepinephrine Bit/D5W Premix 4 MG in Premix Bag 1 BAG IV SCH ×3 (01:28→16:07)
[2022-05-22] MEDS ORDERED: Lactated Ringers 1,000 ML IV SCH ×2 (03:00)
[2022-05-22] MEDS ORDERED: Hydrocortisone Sodium Succinate 100 MG/2 ML SDV IVPUSH ONE ×2 (04:34→17:00)
[2022-05-22] MEDS ORDERED: Lidocaine 1% 20 ML MDV ONE (05:41)
[2022-05-22] MEDS ORDERED: Lidocaine 1% 20 ML MDV INJECT ONE (08:09)
[2022-05-22] MEDS ORDERED: Potassium Chloride 20 MEQ Tab.ER PO ONE (09:07)
[2022-05-22] MEDS ORDERED: Heparin Sodium/D5W 25,000 UNITS/500 ML BAG IV SCH (22:45)
[2022-05-23] MEDS ORDERED: Heparin Sodium 5,000 Units/ML Vial IVPUSH ONE (09:36)
[2022-05-23] MEDS ORDERED: Sodium Phosphate,Monobasic/Sodium Phosphate,Dibasic Enema 133 ML Bottle RECTAL ONE (09:38)
[2022-05-23] MEDS ORDERED: cefTRIAXone 1 GM in Sodium Chloride 0.9% 50 ML IV SCH (12:00)
[2022-05-23 12:48] LABS: ESTIMATED GFR 97 mL/min (>60)
[2022-05-23 16:42] VITALS: PULSE 96
[2022-05-23 18:44] VITALS: BP 136/72
== END 2022-05-23 19:54 ==
LOC: JP.ED 17:55
DX: A41.9 Sepsis, unspecified organism (principal); R65.21 Severe sepsis with septic shock; G93.40 Encephalopathy, unspecified; T83.511A Infection and inflammatory reaction due to indwelling urethral catheter, initial encounter; N39.0 Urinary tract infection, site not specified; R47.01 Aphasia; G35 Multiple sclerosis; I21.4 Non-ST elevation (NSTEMI) myocardial infarction; E66.9 Obesity, unspecified; Z88.1 Allergy status to other antibiotic agents; Z20.822 Contact with and (suspected) exposure to COVID-19; Z68.36 Body mass index [BMI] 36.0-36.9, adult
CPT/HCPCS: 36415; 36556; 70450; 70496; 70498; 80053; 81001; 83605; 84145; 84484; 85025; 85610; 85730; 87040; 87077; 87086; 87088; 87186; 93005; 93010; 96361; 96365; 96366; 96367; 96368; 96375; 96376; 99285; J0131; J0696; J0713; J1644; J3370; J3490; J7030; J7040; J7050; Q9967; U0002

== ENCOUNTER 2022-05-29 12:33 | Emergency (ER) | payer MEDICARE, OTHER ==
[2022-05-29 14:07] VITALS: BP 114/88; PULSE 76
== END 2022-05-29 15:00 | disposition home or self-care (01) ==
LOC: JP.ED 12:33
DX: T83.511A Infection and inflammatory reaction due to indwelling urethral catheter, initial encounter (principal); N39.0 Urinary tract infection, site not specified; G35 Multiple sclerosis; A49.8 Other bacterial infections of unspecified site; R78.81 Bacteremia; E66.9 Obesity, unspecified; Z68.34 Body mass index [BMI] 34.0-34.9, adult; Z88.2 Allergy status to sulfonamides; Z79.899 Other long term (current) drug therapy
CPT/HCPCS: 99283

== ENCOUNTER 2023-05-26 09:35 | Day surgery (SDC) | payer MEDICARE, OTHER ==
[2023-05-26] MEDS: Sodium Chloride 0.9% 1,000 ML IV SCH (10:40)
[2023-05-26] MEDS ORDERED: Midazolam 1 MG/ML 2 ML SDV ONE (11:14)
[2023-05-26] MEDS ORDERED: Propofol 200 MG/20 ML SDV ONE (11:14)
[2023-05-26] MEDS ORDERED: fentaNYL 100 MCG/2 ML SDV ONE (11:14)
[2023-05-26] MEDS ORDERED: Bupivacaine 0.5% 30 ML SDV ONE (11:17)
[2023-05-26] MEDS ORDERED: Docusate Sodium 100 MG Cap PO PRN (11:46)
[2023-05-26] MEDS ORDERED: fentaNYL 100 MCG/2 ML SDV IVPUSH PRN ×3 (11:46)
[2023-05-26] MEDS ORDERED: Zolpidem 5 MG Tab PO PRN (11:46)
[2023-05-26] MEDS ORDERED: Ondansetron 4 MG/2 ML SDV IVPUSH PRN (11:46)
[2023-05-26] MEDS ORDERED: hydrOXYzine HCL 100 MG/2 ML SDV IM PRN (11:46)
[2023-05-26] MEDS ORDERED: Acetaminophen/HYDROcodone 325-5 MG Tab PO PRN (11:46)
[2023-05-26] MEDS ORDERED: Benzocaine/Cetylpyridinium/Menthol Lozenge MUCMEM PRN (11:46)
[2023-05-26] MEDS: ceFAZolin 2 GM in Sodium Chloride 0.9% 50 ML IV ONE (11:50)
[2023-05-26] MEDS ORDERED: Scopalamine 1mg/3day Transdermal Patch TOP SCH (12:00)
[2023-05-26] MEDS: metroNIDAZOLE/Normal Saline 500 MG in Premix Bag 1 BAG IV ONE (12:20)
[2023-05-26] MEDS: Bupivacaine 0.5% 50 ML MDV ONE (12:39)
[2023-05-26 13:55] VITALS: BP 155/70; PULSE 66
[2023-05-26] MEDS ORDERED: SCOPOLAMINE PATCH CHECK TOP SCH (14:00)
== END 2023-05-26 14:40 | disposition home or self-care (01) ==
LOC: JP.SDS 09:35
PROVIDERS: ATTEND Surgery
DX: L97.514 Non-pressure chronic ulcer of other part of right foot with necrosis of bone (principal); I25.2 Old myocardial infarction; G35 Multiple sclerosis; N18.1 Chronic kidney disease, stage 1; E66.9 Obesity, unspecified; Z68.32 Body mass index [BMI] 32.0-32.9, adult; Z79.899 Other long term (current) drug therapy; Z88.2 Allergy status to sulfonamides
CPT/HCPCS: 28810; 87070; 87075; 87077; 87186; 87205; J0690; J1836; J2250; J2704; J3010; J3490; J7030

== ENCOUNTER 2024-03-03 00:16 | Observation (INO) | payer MEDICARE, OTHER ==
[2024-03-03 00:56] LABS: BASOPHILS ABSOLUTE AUTO 0.03 K/uL (0.00-0.10); BASOPHILS PERCENT AUTO 0.3 % (0.1-1.3); EOSINOPHILS ABSOLUTE AUTO 0.06 K/uL (0.00-0.40); EOSINOPHILS PERCENT AUTO 0.6 % (0.0-5.4); HEMOGLOBIN 12.9 g/dL (11.2-15.5); IMMATURE GRAN ABSOLUTE AUTO 0.03 K/uL (0.00-0.23); IMMATURE GRAN PERCENT AUTO 0.3 % (0.0-0.7); LYMPHOCYTES ABSOLUTE AUTO 1.17 K/uL (0.8-3.3); LYMPHOCYTES PERCENT AUTO 12.2 % (11.4-47.7); MEAN CORPUSCULAR HEMOGLOBIN 29.7 pg (31.6-35.5); MEAN CORPUSCULAR HGB CONC 34.9 g/dL (31.6-35.5); MEAN CORPUSCULAR VOLUME 85.3 fL (81.4-99.0); MONOCYTES ABSOLUTE AUTO 1.02 K/uL (0.20-0.90); MONOCYTES PERCENT AUTO 10.6 % (3.3-12.6); NEUTROPHILS ABSOLUTE AUTO 7.27 K/uL (1.0-7.6); PLATELET COUNT,PLT 269 K/uL (130-375); RED BLOOD CELL COUNT 4.34 M/uL (3.77-5.24); WHITE BLOOD CELL COUNT,WBC 9.6 K/uL (3.2-11.0)
[2024-03-03] MEDS: Sodium Chloride 0.9% 1,000 ML IV SCH ×2 (01:06→02:43)
[2024-03-03] MEDS: Ondansetron 4 MG/2 ML SDV IVPUSH ONE (01:14)
[2024-03-03 01:17] LABS: APPEARANCE,URINE TURBID (CLEAR); BILIRUBIN,URINE NEGATIVE (NEGATIVE); COLOR,URINE YELLOW (YELLOW); GLUCOSE,URINE NEGATIVE (NEGATIVE); KETONES,URINE 40 mg/dL (NEGATIVE); LEUKOCYTE ESTERASE,URINE LARGE (NEGATIVE); NITRITE,URINE POSITIVE (NEGATIVE); OCCULT BLOOD,URINE LARGE (NEGATIVE); PROTEIN,URINE 100 mg/dL (NEGATIVE); UROBILINOGEN,URINE 0.2 EU/dL (0.2-1.0)
[2024-03-03 01:30] LABS: A/G RATIO 0.7 (1.2-2.2); ALANINE AMINOTRANSFERASE,ALT 15 U/L (12-78); ALKALINE PHOSPHATASE 133 U/L (46-116); ASPARTATE AMNIOTRANSFERASE,AST 15 U/L (15-37); BILIRUBIN TOTAL 0.9 mg/dL (0.2-1.0); BLOOD UREA NITROGEN,BUN 8 mg/dL (7-18); CALCIUM 8.8 mg/dL (8.5-10.1); CARBON DIOXIDE,CO2 26 mmol/L (21-32); CHLORIDE,CL 104 mmol/L (100-108); CREATININE 0.5 mg/dL (0.6-1.0); EST CRCL DRUG DOSING (CG) 95.21 mL/min; ESTIMATED GFR 100 mL/min (>60); GLUCOSE RANDOM 135 mg/dL (74-106); POTASSIUM,K 3.5 mmol/L (3.6-5.2); PROTEIN TOTAL,TP 7.3 g/dL (6.4-8.2); SODIUM,NA 139 mmol/L (140-148)
[2024-03-03 01:31] LABS: ANION GAP 12.5 mmol/L (5.0-14.0)
[2024-03-03 01:34] LABS: AMORPHOUS SEDIMENT,URINE NOT SEEN; BACTERIA,URINE MANY; EPITHELIAL CELLS,URINE FEW; MUCUS,URINE MODERATE; RBC,URINE 20-30 (0-5); WBC,URINE 50-75 (0-5)
[2024-03-03] MEDS: cefTRIAXone 2 GM in Sodium Chloride 0.9% 50 ML IV ONE (02:02)
[2024-03-03] MEDS ORDERED: Sennosides/Docusate Sodium 50-8.6 MG Tab PO PRN (07:29)
[2024-03-03] MEDS ORDERED: Ondansetron 4 MG/2 ML SDV IV PRN (07:29)
[2024-03-03] MEDS ORDERED: Acetaminophen 325 MG Tab PO PRN (07:29)
[2024-03-03] MEDS ORDERED: Ondansetron 4 MG Tab.DIS PO PRN (07:29)
[2024-03-03] MEDS: Lactobacillus Rhamnosus GG (Probiotic) Cap PO SCH (08:04)
[2024-03-03] MEDS: Sodium Phosphate,Monobasic/Sodium Phosphate,Dibasic Enema 133 ML Bottle RECTAL SCH (09:55)
[2024-03-03] MEDS: Aspirin 81 MG Tab.EC PO SCH (10:03)
[2024-03-03] MEDS: BACLOFEN 20 MG PO SCH ×2 (10:03→21:09)
[2024-03-03] MEDS: Potassium Chloride 20 MEQ Tab.ER PO ONE (10:03)
[2024-03-03] MEDS: [UNRECOGNIZED DRUG - OTHER] PO SCH (13:18)
[2024-03-03] MEDS: HERB LAX PO SCH (16:41)
[2024-03-03] MEDS: Melatonin 3 MG Tab PO PRN (20:56)
[2024-03-03] MEDS ORDERED: Baclofen 10 MG Tab PO SCH (21:00)
[2024-03-03] MEDS ORDERED: [UNRECOGNIZED DRUG - OTHER] PO SCH (21:00)
[2024-03-03] MEDS ORDERED: Patient's Own Medication 1 Each PO SCH (21:00)
[2024-03-03] MEDS: Baclofen 10 MG Tab PO SCH (21:08)
[2024-03-04] MEDS ORDERED: Patient's Own Medication 1 Each PO SCH (02:00)
[2024-03-04] MEDS ORDERED: [UNRECOGNIZED DRUG - OTHER] PO SCH ×2 (02:00→09:00)
[2024-03-04] MEDS: cefTRIAXone 1 GM in Sodium Chloride 0.9% 50 ML IV SCH (02:17)
[2024-03-04 05:28] LABS: HEMATOCRIT 32.8 % (34.3-46.0); HEMOGLOBIN 11.1 g/dL (11.2-15.5); MEAN CORPUSCULAR HEMOGLOBIN 29.5 pg (31.6-35.5); MEAN CORPUSCULAR HGB CONC 33.8 g/dL (31.6-35.5); MEAN CORPUSCULAR VOLUME 87.2 fL (81.4-99.0); RED BLOOD CELL COUNT 3.76 M/uL (3.77-5.24); WHITE BLOOD CELL COUNT,WBC 5.7 K/uL (3.2-11.0)
[2024-03-04] MEDS: Sodium Chloride 0.9% 80 ML IV STA (05:42)
[2024-03-04] MEDS: Iopamidol 612 MG/ML 100 ML Bottle IV STA (05:42)
[2024-03-04 05:47] LABS: ANION GAP 6.3 mmol/L (5.0-14.0); CALCIUM 8.9 mg/dL (8.5-10.1); CREATININE 0.4 mg/dL (0.6-1.0); EST CRCL DRUG DOSING (CG) 119.01 mL/min; POTASSIUM,K 4.3 mmol/L (3.6-5.2)
[2024-03-04] MEDS: HERB LAX PO SCH (07:57)
[2024-03-04] MEDS: Bisacodyl 10 MG Supp RECTAL ONE (10:57)
[2024-03-04] MEDS: [UNRECOGNIZED DRUG - OTHER] PO SCH (11:01)
[2024-03-04 13:00] VITALS: BP 125/57; PULSE 91
[2024-03-04] MEDS ORDERED: [UNRECOGNIZED DRUG - OTHER] PO SCH (14:00)
[2024-03-04] MEDS ORDERED: atorvaSTATin 20 MG Tab PO SCH (17:00)
[2024-03-04] MEDS ORDERED: HERB LAX PO SCH ×2 (17:00)
[2024-03-04] MEDS ORDERED: cefTRIAXone 1 GM in Sodium Chloride 0.9% 50 ML IV SCH (22:00)
== END 2024-03-04 15:00 | disposition home or self-care (01) ==
LOC: JP.ED 00:16 → JP.2SS 03:13
PROVIDERS: ADMIT Registered Nurse; ATTEND Hospitalist
DX: N30.01 Acute cystitis with hematuria (principal); T83.511A Infection and inflammatory reaction due to indwelling urethral catheter, initial encounter; G35 Multiple sclerosis; N18.1 Chronic kidney disease, stage 1; G82.20 Paraplegia, unspecified; E66.9 Obesity, unspecified; Z79.899 Other long term (current) drug therapy
CPT/HCPCS: 36415; 74177; 80048; 80053; 81001; 83605; 85025; 85027; 87040; 87086; 87088; 87186; 96361; 96365; 96375; 96376; 99285; A9270; G0378; J0696; J2405; J3490; J7030; Q9967; 99222; 99238

== ENCOUNTER 2024-04-05 02:53 | Emergency (ER) | payer MEDICARE, OTHER ==
[2024-04-05 03:05] VITALS: BP 144/69; PULSE 83
[2024-04-05 03:38] LABS: APPEARANCE,URINE CLOUDY (CLEAR); BILIRUBIN,URINE NEGATIVE (NEGATIVE); COLOR,URINE YELLOW (YELLOW); GLUCOSE,URINE NEGATIVE (NEGATIVE); KETONES,URINE NEGATIVE (NEGATIVE); LEUKOCYTE ESTERASE,URINE LARGE (NEGATIVE); NITRITE,URINE POSITIVE (NEGATIVE); OCCULT BLOOD,URINE MODERATE (NEGATIVE); PROTEIN,URINE NEGATIVE (NEGATIVE); UROBILINOGEN,URINE 0.2 EU/dL (0.2-1.0)
[2024-04-05 03:43] LABS: AMORPHOUS SEDIMENT,URINE NOT SEEN; BACTERIA,URINE MODERATE; EPITHELIAL CELLS,URINE FEW; MUCUS,URINE NOT SEEN; WBC,URINE PACKED (0-5)
[2024-04-05] MEDS: cefTRIAXone 1 GM, Lidocaine 1% 2.1 ML IM ONE (04:12)
== END 2024-04-05 04:40 | disposition home or self-care (01) ==
LOC: JP.ED 02:53
DX: N39.0 Urinary tract infection, site not specified (principal); Z86.73 Personal history of transient ischemic attack (TIA), and cerebral infarction without residual deficits; E66.9 Obesity, unspecified; Z68.33 Body mass index [BMI] 33.0-33.9, adult; Z79.82 Long term (current) use of aspirin; Z79.899 Other long term (current) drug therapy; Z91.018 Allergy to other foods; Z88.2 Allergy status to sulfonamides
CPT/HCPCS: 81001; 87086; 87088; 87186; 96372; 99283; J0696

== ENCOUNTER 2024-04-15 18:33 | Emergency (ER) | payer MEDICARE, OTHER ==
[2024-04-15 18:51] LABS: BASOPHILS ABSOLUTE AUTO 0.04 K/uL (0.00-0.10); BASOPHILS PERCENT AUTO 0.5 % (0.1-1.3); EOSINOPHILS ABSOLUTE AUTO 0.22 K/uL (0.00-0.40); EOSINOPHILS PERCENT AUTO 2.8 % (0.0-5.4); HEMATOCRIT 42.1 % (34.3-46.0); HEMOGLOBIN 14.1 g/dL (11.2-15.5); IMMATURE GRAN PERCENT AUTO 0.3 % (0.0-0.7); LYMPHOCYTES ABSOLUTE AUTO 3.37 K/uL (0.8-3.3); LYMPHOCYTES PERCENT AUTO 42.3 % (11.4-47.7); MEAN CORPUSCULAR HEMOGLOBIN 29.8 pg (31.6-35.5); MEAN CORPUSCULAR HGB CONC 33.5 g/dL (31.6-35.5); MONOCYTES ABSOLUTE AUTO 0.51 K/uL (0.20-0.90); MONOCYTES PERCENT AUTO 6.4 % (3.3-12.6); NEUTROPHILS ABSOLUTE AUTO 3.81 K/uL (1.0-7.6); NEUTROPHILS PERCENT AUTO 47.7 % (40.0-78.1); PLATELET COUNT,PLT 365 K/uL (130-375); RED BLOOD CELL COUNT 4.73 M/uL (3.77-5.24)
[2024-04-15 18:53] LABS: IMMATURE GRAN ABSOLUTE AUTO 0.02 K/uL (0.00-0.23)
[2024-04-15] MEDS: Albuterol 0.083% 2.5 MG/3 ML Neb Soln NEB ONE (19:03)
[2024-04-15 19:13] LABS: A/G RATIO 0.9 (1.2-2.2); ALANINE AMINOTRANSFERASE,ALT 33 U/L (12-78); ALBUMIN 3.5 g/dL (3.4-5.0); ALKALINE PHOSPHATASE 129 U/L (46-116); ANION GAP 10.4 mmol/L (5.0-14.0); ASPARTATE AMNIOTRANSFERASE,AST 22 U/L (15-37); BILIRUBIN TOTAL 0.6 mg/dL (0.2-1.0); BLOOD UREA NITROGEN,BUN 11 mg/dL (7-18); CALCIUM 9.3 mg/dL (8.5-10.1); CARBON DIOXIDE,CO2 27 mmol/L (21-32); CHLORIDE,CL 103 mmol/L (100-108); CREATININE 0.6 mg/dL (0.6-1.0); EST CRCL DRUG DOSING (CG) 79.34 mL/min; ESTIMATED GFR 95 mL/min (>60); GLUCOSE RANDOM 143 mg/dL (74-106); POTASSIUM,K 3.9 mmol/L (3.6-5.2); PROTEIN TOTAL,TP 7.6 g/dL (6.4-8.2); SODIUM,NA 140 mmol/L (140-148)
[2024-04-15] MEDS: Clindamycin in 0.9 % Sod Chlor 600 MG in Premix Bag 1 BAG IV ONE (20:35)
[2024-04-15] MEDS: Sodium Chloride 0.9% 500 ML IV ONE (21:54)
[2024-04-16 00:28] VITALS: BP 112/52; PULSE 91
== END 2024-04-16 00:28 ==
LOC: JP.ED 18:33
DX: T17.428A Food in trachea causing other injury, initial encounter (principal); R79.89 Other specified abnormal findings of blood chemistry; E66.9 Obesity, unspecified; Z88.2 Allergy status to sulfonamides; Z88.8 Allergy status to other drugs, medicaments and biological substances; Z91.018 Allergy to other foods; Z79.82 Long term (current) use of aspirin; Z79.899 Other long term (current) drug therapy; Z68.33 Body mass index [BMI] 33.0-33.9, adult
CPT/HCPCS: 36415; 71045; 80053; 84484; 85025; 93005; 94640; 96365; 99285; J3490; J7040

== ENCOUNTER 2025-03-11 00:48 | Emergency (ER) | payer MEDICARE, OTHER ==
[2025-03-11 01:32] LABS: BASOPHILS ABSOLUTE AUTO 0.03 K/uL (0.00-0.10); BASOPHILS PERCENT AUTO 0.7 % (0.1-1.3); EOSINOPHILS PERCENT AUTO 0.5 % (0.0-5.4); IMMATURE GRAN PERCENT AUTO 0.2 % (0.0-0.7); LYMPHOCYTES ABSOLUTE AUTO 0.57 K/uL (0.8-3.3); LYMPHOCYTES PERCENT AUTO 14.1 % (11.4-47.7); MONOCYTES ABSOLUTE AUTO 0.42 K/uL (0.20-0.90); MONOCYTES PERCENT AUTO 10.4 % (3.3-12.6); NEUTROPHILS ABSOLUTE AUTO 3.00 K/uL (1.0-7.6); NEUTROPHILS PERCENT AUTO 74.1 % (40.0-78.1); PLATELET COUNT,PLT 231 K/uL (130-375); RED BLOOD CELL COUNT 4.41 M/uL (3.77-5.24); WHITE BLOOD CELL COUNT,WBC 4.1 K/uL (3.2-11.0)
[2025-03-11 01:35] LABS: EOSINOPHILS ABSOLUTE AUTO 0.02 K/uL (0.00-0.40); IMMATURE GRAN ABSOLUTE AUTO 0.01 K/uL (0.00-0.23)
[2025-03-11 01:36] LABS: APPEARANCE,URINE CLOUDY (CLEAR); GLUCOSE,URINE NEGATIVE (NEGATIVE); OCCULT BLOOD,URINE TRACE-INTACT (NEGATIVE)
[2025-03-11 01:41] LABS: SQUAMOUS EPITHELIAL CELLS,UR FEW /HPF; UROTHELIAL CELLS,URINE NOT SEEN /HPF
[2025-03-11 02:03] LABS: A/G RATIO 0.8 (1.2-2.2); ALANINE AMINOTRANSFERASE,ALT 20 U/L (12-78); ASPARTATE AMNIOTRANSFERASE,AST 19 U/L (15-37); BILIRUBIN TOTAL 0.6 mg/dL (0.2-1.0); BLOOD UREA NITROGEN,BUN 7 mg/dL (7-18); CARBON DIOXIDE,CO2 26 mmol/L (21-32); CHLORIDE,CL 104 mmol/L (100-108); CREATININE 0.4 mg/dL (0.6-1.0); EST CRCL DRUG DOSING (CG) 117.26 mL/min; ESTIMATED GFR 104 mL/min (>60); GLUCOSE RANDOM 111 mg/dL (74-106); POTASSIUM,K 3.9 mmol/L (3.6-5.2); PROTEIN TOTAL,TP 6.7 g/dL (6.4-8.2); SODIUM,NA 139 mmol/L (140-148)
[2025-03-11] MEDS: Levofloxacin/Dextrose 5%-Water 500 MG in Premix Bag 1 BAG IV ONE (02:44)
[2025-03-11] MEDS: Sodium Chloride 0.9% 10 ML Syringe FLUSH PRN (02:47)
[2025-03-11 07:27] VITALS: PULSE 87
[2025-03-11 07:33] VITALS: BP 100/44
== END 2025-03-11 07:00 | disposition home or self-care (01) ==
LOC: JP.ED 00:48
DX: T83.511A Infection and inflammatory reaction due to indwelling urethral catheter, initial encounter (principal); E66.9 Obesity, unspecified; N18.9 Chronic kidney disease, unspecified; Z79.899 Other long term (current) drug therapy; Z79.1 Long term (current) use of non-steroidal anti-inflammatories (NSAID); Z88.2 Allergy status to sulfonamides; Z88.8 Allergy status to other drugs, medicaments and biological substances; Z68.35 Body mass index [BMI] 35.0-35.9, adult
CPT/HCPCS: 36415; 80053; 81001; 83605; 85025; 87086; 87088; 87186; 96365; 99285; J1956; 99283

== ENCOUNTER 2025-04-24 17:24 | Emergency (ER) | payer MEDICARE, OTHER ==
[2025-04-24 19:48] VITALS: BP 149/51; PULSE 80
[2025-04-24 20:01] LABS: BASOPHILS ABSOLUTE AUTO 0.03 K/uL (0.00-0.10); BASOPHILS PERCENT AUTO 0.5 % (0.1-1.3); EOSINOPHILS ABSOLUTE AUTO 0.19 K/uL (0.00-0.40); EOSINOPHILS PERCENT AUTO 3.1 % (0.0-5.4); IMMATURE GRAN PERCENT AUTO 0.3 % (0.0-0.7); LYMPHOCYTES ABSOLUTE AUTO 1.78 K/uL (0.8-3.3); LYMPHOCYTES PERCENT AUTO 28.6 % (11.4-47.7); MONOCYTES ABSOLUTE AUTO 0.53 K/uL (0.20-0.90); MONOCYTES PERCENT AUTO 8.5 % (3.3-12.6); NEUTROPHILS ABSOLUTE AUTO 3.67 K/uL (1.0-7.6); NEUTROPHILS PERCENT AUTO 59.0 % (40.0-78.1); PLATELET COUNT,PLT 302 K/uL (130-375); RED BLOOD CELL COUNT 3.41 M/uL (3.77-5.24); WHITE BLOOD CELL COUNT,WBC 6.2 K/uL (3.2-11.0)
[2025-04-24 20:02] LABS: IMMATURE GRAN ABSOLUTE AUTO 0.02 K/uL (0.00-0.23)
[2025-04-24 20:22] LABS: A/G RATIO 0.7 (1.2-2.2); ALANINE AMINOTRANSFERASE,ALT 23 U/L (12-78); ASPARTATE AMNIOTRANSFERASE,AST 21 U/L (15-37); BILIRUBIN TOTAL 1.2 mg/dL (0.2-1.0); BLOOD UREA NITROGEN,BUN 9 mg/dL (7-18); CARBON DIOXIDE,CO2 27 mmol/L (21-32); CHLORIDE,CL 107 mmol/L (100-108); CREATININE 0.4 mg/dL (0.6-1.0); EST CRCL DRUG DOSING (CG) 117.26 mL/min; ESTIMATED GFR 104 mL/min (>60); GLUCOSE RANDOM 83 mg/dL (74-106); POTASSIUM,K 3.6 mmol/L (3.6-5.2); PROTEIN TOTAL,TP 6.4 g/dL (6.4-8.2); SODIUM,NA 142 mmol/L (140-148)
== END 2025-04-24 21:25 | disposition home or self-care (01) ==
LOC: JP.ED 17:24
DX: G89.18 Other acute postprocedural pain (principal); R10.9 Unspecified abdominal pain; Z88.2 Allergy status to sulfonamides; Z79.899 Other long term (current) drug therapy
CPT/HCPCS: 36415; 80053; 82272; 85025; 99283

== ENCOUNTER 2025-05-31 10:46 | Inpatient (IN) | payer MEDICARE, OTHER ==
[2025-05-31] MEDS ORDERED: Sodium Chloride 0.9% 10 ML Syringe FLUSH PRN (10:57)
[2025-05-31 11:32] LABS: BASE EXCESS VENOUS 0 mm/L; BICARBONATE,VENOUS 21.0 mmol/L; O2 SATURATION VENOUS 96.2; OXYHEMOGLOBIN 91.4 %; PCO2 VENOUS 24.1 mm/Hg; PH,VENOUS 7.549 (7.350-7.450); PO2 VENOUS 67.0 mm/Hg; TOTAL HEMOGLOBIN 11.9 g/dL (12.0-16.0)
[2025-05-31 11:33] LABS: BASOPHILS PERCENT AUTO 0.2 % (0.1-1.3); EOSINOPHILS PERCENT AUTO 0.2 % (0.0-5.4); IMMATURE GRAN ABSOLUTE AUTO 0.04 K/uL (0.00-0.23); IMMATURE GRAN PERCENT AUTO 0.6 % (0.0-0.7); LYMPHOCYTES ABSOLUTE AUTO 0.37 K/uL (0.8-3.3); LYMPHOCYTES PERCENT AUTO 5.7 % (11.4-47.7); MONOCYTES ABSOLUTE AUTO 0.35 K/uL (0.20-0.90); MONOCYTES PERCENT AUTO 5.4 % (3.3-12.6); NEUTROPHILS ABSOLUTE AUTO 5.74 K/uL (1.0-7.6); NEUTROPHILS PERCENT AUTO 87.9 % (40.0-78.1); PLATELET COUNT,PLT 247 K/uL (130-375); RED BLOOD CELL COUNT 3.78 M/uL (3.77-5.24); WHITE BLOOD CELL COUNT,WBC 6.5 K/uL (3.2-11.0)
[2025-05-31 11:35] LABS: BASOPHILS ABSOLUTE AUTO 0.01 K/uL (0.00-0.10); EOSINOPHILS ABSOLUTE AUTO 0.01 K/uL (0.00-0.40)
[2025-05-31] MEDS: Acetaminophen 1,000 MG in Premix Bag 1 BAG IV ONE (11:35)
[2025-05-31 11:44] LABS: APPEARANCE,URINE CLOUDY (CLEAR); GLUCOSE,URINE NEGATIVE (NEGATIVE); OCCULT BLOOD,URINE TRACE-INTACT (NEGATIVE)
[2025-05-31 11:58] LABS: A/G RATIO 0.7 (1.2-2.2); ALANINE AMINOTRANSFERASE,ALT 31 U/L (12-78); ASPARTATE AMNIOTRANSFERASE,AST 28 U/L (15-37); BILIRUBIN TOTAL 0.6 mg/dL (0.2-1.0); BLOOD UREA NITROGEN,BUN 9 mg/dL (7-18); CARBON DIOXIDE,CO2 24 mmol/L (21-32); CHLORIDE,CL 104 mmol/L (100-108); CREATININE 0.5 mg/dL (0.6-1.0); EST CRCL DRUG DOSING (CG) 93.81 mL/min; ESTIMATED GFR 99 mL/min (>60); GLUCOSE RANDOM 99 mg/dL (74-106); POTASSIUM,K 4.1 mmol/L (3.6-5.2); PROTEIN TOTAL,TP 6.6 g/dL (6.4-8.2); SODIUM,NA 138 mmol/L (140-148); TROPONIN I HIGH SENSITIVITY 19.0 pg/mL (<=60.3)
[2025-05-31 12:01] LABS: LACTIC ACID 1.1 mmol/L (0.4-2.0)
[2025-05-31 12:21] LABS: SQUAMOUS EPITHELIAL CELLS,UR MANY /HPF; UROTHELIAL CELLS,URINE NOT SEEN /HPF
[2025-05-31] MEDS: Norepinephrine Bit/D5W Premix 4 MG/250 ML BAG IV SCH (15:04)
[2025-05-31] MEDS: Norepinephrine Bit/D5W Premix 4 MG/250 ML BAG ONE (15:16)
[2025-05-31 15:37] LABS: A/G RATIO 0.7 (1.2-2.2); ALANINE AMINOTRANSFERASE,ALT 30.0 U/L (12-78); ASPARTATE AMNIOTRANSFERASE,AST 32.0 U/L (15-37); BILIRUBIN DIRECT 0.14 mg/dL (0.0-0.2); BILIRUBIN INDIRECT 0.46; BILIRUBIN TOTAL 0.6 mg/dL (0.2-1.0); LACTATE DEHYDROGENASE,LDH 311.0 U/L (82-234); PROTEIN TOTAL,TP 6.6 g/dL (6.4-8.2)
[2025-05-31] MEDS ORDERED: Ondansetron 4 MG Tab.DIS PO PRN (17:10)
[2025-05-31] MEDS ORDERED: Ondansetron 4 MG/2 ML SDV IV PRN (17:10)
[2025-05-31] MEDS ORDERED: Magnesium Hydroxide 400 MG/5 ML Susp 30 ML Cup PO PRN (17:10)
[2025-05-31] MEDS: Hydrocortisone Sodium Succinate 100 MG/2 ML SDV IVPUSH ONE (19:46)
[2025-05-31] MEDS: Levofloxacin/Dextrose 5%-Water 750 MG in Premix Bag 1 BAG IV SCH (19:49)
[2025-05-31] MEDS: Lactobacillus Rhamnosus GG (Probiotic) Cap PO SCH (20:23)
[2025-06-01 05:57] LABS: PLATELET COUNT,PLT 212.0 K/uL (130-375); RED BLOOD CELL COUNT 3.43 M/uL (3.77-5.24); WHITE BLOOD CELL COUNT,WBC 4.3 K/uL (3.2-11.0)
[2025-06-01 06:30] LABS: A/G RATIO 0.6 (1.2-2.2); ALANINE AMINOTRANSFERASE,ALT 28 U/L (12-78); ASPARTATE AMNIOTRANSFERASE,AST 26 U/L (15-37); BILIRUBIN TOTAL 0.5 mg/dL (0.2-1.0); BLOOD UREA NITROGEN,BUN 7 mg/dL (7-18); CARBON DIOXIDE,CO2 24 mmol/L (21-32); CHLORIDE,CL 110 mmol/L (100-108); CREATININE 0.5 mg/dL (0.6-1.0); EST CRCL DRUG DOSING (CG) 94.32 mL/min; ESTIMATED GFR 99 mL/min (>60); GLUCOSE RANDOM 92 mg/dL (74-106); POTASSIUM,K 3.6 mmol/L (3.6-5.2); PROTEIN TOTAL,TP 5.9 g/dL (6.4-8.2); SODIUM,NA 141 mmol/L (140-148)
[2025-06-01] MEDS: Piperacillin/Tazobactam/Dext 4.5 GM in Premix Bag 1 BAG IV SCH (16:10)
[2025-06-02 06:31] LABS: BLOOD UREA NITROGEN,BUN 7.0 mg/dL (7-18); CARBON DIOXIDE,CO2 22.0 mmol/L (21-32); CHLORIDE,CL 111.0 mmol/L (100-108); CREATININE 0.4 mg/dL (0.6-1.0); EST CRCL DRUG DOSING (CG) 117.9 mL/min; ESTIMATED GFR 104.0 mL/min (>60); GLUCOSE RANDOM 93.0 mg/dL (74-106); POTASSIUM,K 3.1 mmol/L (3.6-5.2); SODIUM,NA 143.0 mmol/L (140-148); VANCOMYCIN RANDOM 21.1 ug/mL (0.0-50.0)
[2025-06-02] MEDS: Potassium Chloride 20 MEQ Tab.ER PO ONE (10:43)
[2025-06-03] MEDS: Potassium Chloride 20 MEQ Tab.ER PO ONE (08:38)
[2025-06-04] MEDS: guaiFENesin/Dextromethorphan 100-10 MG/5 ML Soln 10 ML Cup PO PRN (01:04)
[2025-06-04] MEDS ORDERED: Codeine/guaiFENesin 10-100 MG/5 ML Syrup 5 ML Cup PO PRN (01:18)
[2025-06-04 05:48] LABS: PLATELET COUNT,PLT 194.0 K/uL (130-375); RED BLOOD CELL COUNT 3.31 M/uL (3.77-5.24); WHITE BLOOD CELL COUNT,WBC 5.0 K/uL (3.2-11.0)
[2025-06-04 06:04] LABS: BLOOD UREA NITROGEN,BUN 11.0 mg/dL (7-18); CARBON DIOXIDE,CO2 24.0 mmol/L (21-32); CHLORIDE,CL 109.0 mmol/L (100-108); CREATININE 0.4 mg/dL (0.6-1.0); EST CRCL DRUG DOSING (CG) 117.9 mL/min; ESTIMATED GFR 104.0 mL/min (>60); GLUCOSE RANDOM 99.0 mg/dL (74-106); POTASSIUM,K 3.6 mmol/L (3.6-5.2); SODIUM,NA 142.0 mmol/L (140-148)
[2025-06-04] MEDS: Sennosides/Docusate Sodium 50-8.6 MG Tab PO PRN (08:59)
[2025-06-04] MEDS: Sodium Phosphate,Monobasic/Sodium Phosphate,Dibasic Enema 133 ML Bottle RECTAL ONE (17:55)
[2025-06-05 11:16] VITALS: BP 132/47; PULSE 72
== END 2025-06-05 11:20 | disposition home or self-care (01) | DRG 871 ==
LOC: JP.ED 10:46 → JP.ICU 15:43 → JP.MS 06-02 10:43
PROVIDERS: ADMIT Internal Medicine; ATTEND Internal Medicine
PROC: 4A033R1 Measurement of Arterial Saturation, Peripheral, Percutaneous Approach (ICD-10-PCS; principal; 2025-05-31)
PROC: 3E03329 Introduction of Other Anti-infective into Peripheral Vein, Percutaneous Approach (ICD-10-PCS; 2025-05-31)
PROC: 3E033XZ Introduction of Vasopressor into Peripheral Vein, Percutaneous Approach (ICD-10-PCS; 2025-05-31)
PROC: XW033E5 Introduction of Remdesivir Anti-infective into Peripheral Vein, Percutaneous Approach, New Technology Group 5 (ICD-10-PCS; 2025-05-31)
DX: A41.81 Sepsis due to Enterococcus (principal); J12.82 Pneumonia due to coronavirus disease 2019; J18.9 Pneumonia, unspecified organism; R65.21 Severe sepsis with septic shock; U07.1 COVID-19; N39.0 Urinary tract infection, site not specified; K59.09 Other constipation; H54.7 Unspecified visual loss; E66.9 Obesity, unspecified; G35.D Multiple sclerosis, unspecified; N31.9 Neuromuscular dysfunction of bladder, unspecified; Z88.2 Allergy status to sulfonamides; Z88.8 Allergy status to other drugs, medicaments and biological substances; Z79.899 Other long term (current) drug therapy; Z79.82 Long term (current) use of aspirin; Z87.442 Personal history of urinary calculi; Z87.81 Personal history of (healed) traumatic fracture; Z95.5 Presence of coronary angioplasty implant and graft; Z98.890 Other specified postprocedural states; Z68.36 Body mass index [BMI] 36.0-36.9, adult; Z99.3 Dependence on wheelchair
CPT/HCPCS: 36415; 70450; 70450-26; 71045; 71045-26; 80048; 80053; 80076; 80202; 81001; 82728; 82803; 83605; 83615; 83735; 84132; 84145; 84484; 85025; 85027; 86140; 87040; 87086; 87088; 87186; 87428-QW; 93005; 93010; 96361; 96365; 96366; 96375; 99223; 99232; 99238; 99285; 99285-25; A9270-GY; J0131; J1650; J1720; J1956; J2543; J3373; J3374; J7030; J7040; J7050